=== PATIENT | female | born 1960 | race Caucasian/White ===

== ENCOUNTER → 2017-03-15 | Outpatient (CLI) | payer BC ==
--- NOTE | 2017-03-15 16:44 | MAM ---
EXAM DESCRIPTION: 3D Screening BILATERAL CLINICAL HISTORY: 56 yearsFemaleSCREENING. No complaints. Mother with breast cancer. Postmenopausal. No HRT. COMPARISON: Baseline study at this facility. No prior reports available. TECHNIQUE: Bilateral CC and MLO projection full-field images, 3-D tomosynthesis digital mammographic technique. Also bilateral synthesized CC/ MLO full-field images. CAD not utilized. FINDINGS: The breast parenchymal density pattern is: Scattered areas of fibroglandular density. No skin thickening or nipple retraction focal area of architectural distortion in the middle third of the left breast at the 300 clock position, approximately 9 cm from the nipple. Approximately 3 cm from the lateral skin surface. No associated with abnormal calcifications. Small focal mass density with partially circumscribed and partially ill-defined borders in the anterior to middle third of the right breast, upper outer quadrant, at the 930 clock position. Approximately 6.5 cm from the nipple. Not associated with calcifications. No focal asymmetry and no suspicious microcalcifications bilaterally. IMPRESSION: BI-RADS CATEGORY: 0 - INCOMPLETE- Need additional imaging evaluation. FOLLOW-UP: Recall for additional imaging: Targeted bilateral breast ultrasound in the regions of interest described in the findings. Digital 2-D orthogonal spot compression of the region of architectural distortion in the middle third of the left breast described in the findings. Written communication explaining the results and follow-up will be mailed to the patient and referring care provider. Electronically signed by: Gaurang Bustos MD 03/15/2017 4:43 PM CDT
== END | disposition home or self-care (01) ==
LOC: MAMMO 08:22
PROVIDERS: ATTEND Family Medicine
DX: Z12.31 Encounter for screening mammogram for malignant neoplasm of breast (principal)
CPT/HCPCS: 77063; G0202

== ENCOUNTER → 2017-04-26 | Outpatient (CLI) | payer BC | END | disposition home or self-care (01) | LOC: GMAM 16:42 | PROVIDERS: ATTEND Family Medicine | DX: R31.21 Asymptomatic microscopic hematuria (principal) ==

== ENCOUNTER → 2017-05-05 | Outpatient (CLI) | payer BC ==
--- NOTE | 2017-05-06 00:50 | CT ---
PROCEDURE: Abdoment/Pelvis w/o Contrast HISTORY: MICROSCOPIC HEMATURIA Indication: Same as above Comparison: None Technique: CT of the abdomen and pelvis was done without intravenous contrast. Images were obtained from the lung base to the level of the pubic symphysis in axial plane, followed by orthogonal sagittal and coronal reconstruction. Oral contrast was not given for the study. This exam was performed according to our departmental dose-optimization program, which includes automated exposure control, adjustment of the mA and/or KV according to the patient's size and/or use of iterative reconstruction technique. FINDINGS: Images through the lung bases do not show any focal infiltrates or pleural effusions. The liver, gallbladder, pancreas, spleen and the bilateral adrenal glands appear unremarkable, given the limitation of lack of intravenous contrast. The bilateral kidneys do not show any evidence of hydronephrosis or nephrolithiasis. The bilateral ureters and the bilateral periureteral soft tissues and fat planes are unremarkable. The urinary bladder is unremarkable, without any evidence of wall thickening, calculi or filling defects. The small bowel appears unremarkable, without any evidence of small bowel obstruction or bowel wall thickening. There is no CT evidence of acute appendicitis, pericecal inflammatory change or ileocecal mesenteric adenitis. The ileocecal junction appears unremarkable. There is no CT evidence of acute colonic diverticulitis or colitis or large bowel obstruction. There is large bowel diverticulosis There is no pathological lymphadenopathy in the retroperitoneum or in the pelvic region. There is no evidence of free fluid or free air in the abdomen or the pelvic region. There is no clinically significant abdominal aortic aneurysm. There is a tiny fat-containing periumbilical ventral hernia defect The visualized lumbar spine is unremarkable. The paravertebral soft tissues are unremarkable. The remainder of the pelvic structures are unremarkable. IMPRESSION: There is no CT evidence of urinary tract calculi or urinary tract obstruction. The urinary bladder is unremarkable Electronically signed by: Chente Woody MD 05/06/2017 12:49 AM CDT Workstation: [id number]
== END | disposition home or self-care (01) ==
LOC: CT 07:58
PROVIDERS: ATTEND Family Medicine
DX: R31.21 Asymptomatic microscopic hematuria (principal)

== ENCOUNTER → 2018-03-03 | Outpatient (CLI) | payer BC ==
--- NOTE | 2018-03-03 12:57 | US ---
EXAM DESCRIPTION: Liver CLINICAL HISTORY: 57 years Female, ABNORMAL LIVER ENZYMES COMPARISON: None. FINDINGS: Visualized portions of the pancreas are unremarkable. Liver appears hyperechoic consistent with diffuse hepatic steatosis. No focal liver mass or liver surface irregularity. Normal appearance of hepatic veins and inferior vena cava. Positive color flow in the portal vein. Gallbladder is visualized with no calcified stones in the lumen. In the right lobe of the liver a small irregular lucent lesion is seen which could be a cyst 1.2 cm. This can be followed. A repeat sonogram in 6-12 months is recommended. Common duct is normal in caliber 3.5 mm. No intrahepatic bile duct dilatation. Right kidney measures 10.2 cm in length which appears normal. IMPRESSION: Hyperechoic liver consistent with diffuse hepatic steatosis. Small cyst in the right lobe of the liver. Electronically signed by: Octavio Green MD 03/03/2018 12:56 PM CDT
== END ==
LOC: US 07:35
PROVIDERS: ATTEND Family Medicine
DX: R94.5 Abnormal results of liver function studies (principal); K76.0 Fatty (change of) liver, not elsewhere classified; K76.89 Other specified diseases of liver

== ENCOUNTER → 2018-05-11 | Outpatient (CLI) | payer BC ==
--- NOTE | 2018-05-12 15:51 | MAM ---
EXAM DESCRIPTION: 3D Screening BILATERAL : Digital Mammography. CLINICAL HISTORY: 57 years Female SCREENING . No complaints or personal history of breast cancer. Mother with breast cancer. Childbirth. Postmenopausal. No HRT. Left breast cyst aspiration.. Lifetime risk of developing breast cancer (Tyrer-Cuzick model)(%): 14.6. COMPARISON: Bilateral screening digital breast tomosynthesis 03/15/2017.. TECHNIQUE: Bilateral CC and MLO projection full-field images, digital tomosynthesis mammographic technique. Bilateral digital 2-D full-field MLO images. CAD not utilized. FINDINGS: The breast parenchymal density pattern is: Scattered areas of fibroglandular density. No skin thickening or nipple retraction. Left axillary lymph nodes. Again noted is architectural distortion in the upper outer quadrant of the middle third of the left breast, near the 3:00 position. There is suggestion of a small oval-shaped mass developing posterior and medial to the architectural distortion, since prior study. No associated calcifications.. No new focal, stellate mass or density, focal asymmetry , and no suspicious microcalcifications right breast. IMPRESSION: BI-RADS CATEGORY: 0 - INCOMPLETE- Need additional imaging evaluation. FOLLOW-UP: Recall for additional imaging: Targeted left breast ultrasound of the region of interest. Possible diagnostic digital left breast tomosynthesis to follow, depending on findings on the targeted left breast ultrasound examination.. Written communication concerning the IMPRESSION and Follow-up, will be mailed to the patient and referring health care provider. Electronically signed by: Gaurang Bustos MD 05/12/2018 3:50 PM CDT
== END ==
LOC: MAMMO 08:00
PROVIDERS: ATTEND Family Medicine
DX: Z12.31 Encounter for screening mammogram for malignant neoplasm of breast (principal)

== ENCOUNTER → 2018-05-18 | Outpatient (CLI) | payer BC ==
--- NOTE | 2018-05-18 11:45 | US ---
EXAM DESCRIPTION: Breast,Left: Ultrasound CLINICAL HISTORY: 57 yearsFemaleABNORMAL MAMMOGRAM COMPARISON: Digital screening tomosynthesis bilateral breast 05/11/2018. TECHNIQUE: Transcutaneous scanning of the lateral left breast utilizing hawthorne-scale and Doppler modes. Scanning performed by the printed circuit boards stripper etcher and Dr. Bustos. FINDINGS: Heterogeneous breast tissue with mixture of fibroglandular and fatty echotexture. Scanning 200-400 clock positions middle third. At the 3:00 position 7 cm from the nipple, is an ill-defined hypoechoic nodule measuring approximately 3.3 mm. Orientation is difficult to determine. Dense posterior shadowing. Minimal vascularity. Partial fatty echo a low anterior to the mass, with minimal echogenic radiating tissues. No definite calcifications. Based upon sonographic appearance in mammographic appearance, this could represent architectural distortion from prior procedure versus neoplasm or scar tissue. No distinct cyst. No parenchymal edema or large calcifications. Overlying skin was unremarkable. No abnormal vascularity surrounding the mass. IMPRESSION: BI-RADS CATEGORY 4: SUSPICIOUS. SUB-CATEGORY 4A - LOW SUSPICION FOR MALIGNANCY. Surgical consultation and tissue diagnosis should be considered. The FINDINGS and FOLLOW-UP plan were reviewed in person with the patient following the examination. Written communication explaining the IMPRESSION and FOLLOW-UP will be mailed to the patient and referring care provider. CRITICAL COMMUNICATION: The critical value was discussed directly by phone with Dr. Oriana Marmolejo at approximately 1130 hours, on May 18, 2018. Electronically signed by: Gaurang Bustos MD 05/18/2018 11:44 AM SAMPLER AND TEST PREPARER
== END ==
LOC: US 10:18
PROVIDERS: ATTEND Family Medicine
DX: R92.8 Other abnormal and inconclusive findings on diagnostic imaging of breast (principal)

== ENCOUNTER → 2018-05-25 | Outpatient (CLI) | payer BC ==
--- NOTE | 2018-05-25 13:11 | OP ---
DATE OF PROCEDURE: 05/25/18 PREOPERATIVE DIAGNOSIS: 1. Abnormal mammogram with a solid, shadowy mass at the 3 o'clock position. POSTOPERATIVE DIAGNOSIS: 1. Abnormal mammogram with a solid, shadowy mass at the 3 o'clock position. PROCEDURE: 1. Sonographically guided needle core biopsy, left breast mass. SURGEON: Santos Pierce MD. WORK STATION SUPPORT SPECIALIST: None. ANESTHESIA: Local infiltration of 1% lidocaine. INDICATION: The patient is a 57-year-old female who on routine mammography was found to have a lesion at the 3 o'clock position. It was shadowed and was solid. It was quite small. She was brought to the Ultrasound Suite today for sonographically guided biopsy after the risks, benefits and alternatives to this biopsy were discussed and accepted. FINDINGS: Multiple good cores were taken. It was noted that the biopsy needle tended to bounce off the lesion. PROCEDURE: After the patient was placed in the supine position with her left shoulder elevated, the left breast was inspected with the ultrasound device. When the lesion was identified, the breast lateral to the ultrasound probe was prepped with Betadine and draped. Local infiltration of anesthesia was obtained with 1% lidocaine, both in the skin and the tract between the skin and the lesion. A stab wound was then made with a 15 blade and multiple passes were made with the biopsy device. Several cores were obtained and sent for pathological evaluation . Hemostasis was obtained with pressure and a single simple 4-0 Nylon suture. Sterile pressure dressing was applied. The patient was then discharged home in good condition. Estimated blood loss was less than [id number] [facility]
--- NOTE | 2018-05-26 09:34 | US ---
EXAM DESCRIPTION: Biopsy/Needle Guidance: Ultrasound. CLINICAL HISTORY: 57 years Female ABN MAMMO COMPARISON: Diagnostic ultrasound of the left breast on 05/18/2018. TECHNIQUE: The procedure was performed by Dr. Pierce. Repeat ultrasound localized left breast mass/nodule at the 3:00 position of the left breast 7 cm from the nipple.. Sterile preparation. Sterile ultrasound guidance during needle passes. FINDINGS: Images before the procedure again show small nodule with questionable orientation and posterior shadowing. Follow-up images demonstrate multiple needle passes in the vicinity of the mass. IMPRESSION: Successful, ultrasound-guided needle core biopsy of left breast mass. Adequate core samples were obtained. Pathology examination at remote facility, results pending. Electronically signed by: Gaurang Bustos MD 05/26/2018 9:32 AM ACID OPERATOR
== END ==
LOC: US 11:49
PROVIDERS: ATTEND Surgery
DX: R92.8 Other abnormal and inconclusive findings on diagnostic imaging of breast (principal)

== ENCOUNTER → 2018-05-31 | Outpatient (CLI) | payer BC ==
--- NOTE | 2018-05-31 14:34 | NM ---
EXAM DESCRIPTION: Bone Scan, Whole Body CLINICAL HISTORY: C50.812 left breast cancer COMPARISON: CT abdomen and pelvis dated May 05, 2017. TECHNIQUE: Following intravenous administration of 26.4 mCi technetium 99m MDP, whole body scintigraphic imaging was performed in the anterior and posterior projections. FINDINGS: Skull: Unremarkable. Spine: No osteoblastic metastatic lesions. Thorax: Symmetric homogeneous physiologic radiotracer uptake noted of the bilateral ribs and sternum. No osteoblastic metastatic lesions. Abdomen and pelvis: Urinary activity noted within the bilateral kidneys and urinary bladder.Mild urine contaminated noted within the female genitalia region. No pathologic focus of abnormal increased uptake demonstrated of the osseous pelvis. Extremities: Mild degenerative uptake within the bilateral shoulders and knee joints. IMPRESSION: No scintigraphic evidence for osteoblastic metastatic disease. Electronically signed by: Sandip Delgado MD 05/31/2018 2:32 PM TEAR DOWN MAN
--- NOTE | 2018-06-04 16:16 | RAD ---
EXAM DESCRIPTION: Chest,2 Views: CR/ CLINICAL HISTORY: C50.812. Left Breast cancer. COMPARISON: None. TECHNIQUE: Two views. FINDINGS: Lungs: Clear of infiltrate. Pleural spaces: No effusion or pneumothorax bilaterally. Heart: Normal size. Pulmonary Vascularity: Not increased. Mediastinum: Not widened. Aorta: Minimal atherosclerotic changes. Bony Thorax/Spine: No acute bony thoracic abnormalities. Endplate spurs and disc space narrowing. IMPRESSION: No radiographic evidence of acute cardiopulmonary disease. Electronically signed by: Gaurang Bustos MD 06/04/2018 4:15 PM PHARMACY TECHNICIAN ASSISTANT
== END ==
LOC: NM 09:54
PROVIDERS: ATTEND Surgery
DX: C50.812 Malignant neoplasm of overlapping sites of left female breast (principal)

== ENCOUNTER → 2019-10-30 | Outpatient (CLI) | payer BC ==
--- NOTE | 2019-10-31 10:00 | US ---
EXAM DESCRIPTION: 3D Diagnostic, Bilateral (accession [id number]), Breast,Bilateral (accession [id number]): Ultrasound CLINICAL HISTORY: 59 yearsFemaleMALIGNANT NEOPLASM OF CENTRAL PORTION OF LEFT FEMALE BREAST . Personal history of left breast cancer with lumpectomy and radiation and chemotherapy. Mother with breast cancer. Menarche age 10. Childbirth age 17. Menopause age 50. No HRT. Bilateral breast reduction post lumpectomy. Lifetime risk of developing breast cancer (Tyrer-Cuzick model)(%): Not calculated due to personal history of breast cancer. COMPARISON: Bilateral screening digital breast tomosynthesis May 2018. Left Breast ultrasound and right breast ultrasound-guided biopsy May 2018. Digital follow-up mammogram at other facility in May 2019, not yet available for comparison. TECHNIQUE: Bilateral LM, CC, and MLO projection full-field images, digital tomosynthesis technique. Bilateral 2-D digital full-field images: LM, CC, and MLO projections. CAD available for 2-D images.. Transcutaneous scanning of the bilateral breasts utilizing hawthorne-scale and Doppler modes. Scanning performed by the janitorial maintenance worker ; observation by Dr. Bustos. FINDINGS: The breast parenchymal density pattern is: Scattered areas of fibroglandular density. No skin thickening or nipple retraction bilateral architectural distortion secondary to breast reduction procedure. Bilateral breasts volume decreased consistent with procedure. Skin marker over lumpectomy site anterior left breast. Skin mole marker inferior right breast. Right axillary lymph node. Solitary microcalcifications bilaterally. Focal asymmetry similar to fat necrosis associated with the left breast skin marker. Faint curvilinear calcifications. New mass density posterior right axilla upper outer quadrant, circumscribed margins with tissue extension. Ultrasound: Scanning region of interest upper outer quadrant posterior right breast. Well-defined anechoic fluid collection with thin frausto, wider than tall orientation and posterior acoustic enhancement. Nonvascular. Greatest dimension 2.9 cm. 1.7 x 0.5 cm radial axis. No dominant solid mass or large calcifications. Surrounding tissue is mostly fatty replaced. Scanning region of interest around the skin marker anterior left breast. Irregular low-density with posterior acoustic shadowing. Dimensions approximately 1.7 x 1.0 cm. Nonvascular. This may be due to calcification. Echogenic components could represent fat. Surrounding tissue is mostly fatty replaced. IMPRESSION: BI-RADS CATEGORY: 0 - INCOMPLETE- Need prior mammograms for comparison. FOLLOW-UP: Comparison with prior examination(s) when available. Written communication explaining the results and follow-up will be mailed to the patient and referring care provider. The FINDINGS and the FOLLOW-UP plan (to obtain prior digital mammography study last year) were reviewed in person with the patient after the examination. Electronically signed by: Gaurang Bustos MD 10/31/2019 9:59 AM CDT
== END ==
LOC: MAMMO 08:52
PROVIDERS: ATTEND Nurse Practitioner Family
DX: C50.112 Malignant neoplasm of central portion of left female breast (principal)
CPT/HCPCS: 76641; 77066; G0279

== ENCOUNTER → 2020-04-16 | Outpatient (CLI) | payer BC ==
--- NOTE | 2020-04-17 16:26 | MAM ---
EXAM DESCRIPTION: 3D Diagnostic, Right (accession [id number]), Breast,Right (accession [id number]): Ultrasound CLINICAL HISTORY: 59 yearsFemaleABNORMAL MAMMO . Six-month follow-up Left breast cancer 2011 with lumpectomy and treatment. Bilateral breast reduction. Probable scar upper outer quadrant posterior right breast. No tenderness or pain at this site. Mother with breast cancer age 61. Lifetime risk of developing breast cancer (Tyrer-Cuzick model)(%): Not calculated due to personal history of breast cancer. COMPARISON: Diagnostic bilateral breast ultrasound October 2019. TECHNIQUE: Right breast LM, CC, and MLO projection full-field images, digital tomosynthesis technique. Right breast 2-D digital full-field images: LM, CC, and MLO projections. CAD available for 2-D images.. Transcutaneous scanning of the right breast utilizing hawthorne-scale and Doppler modes. Scanning performed by the clean out driller helper ; observation by Dr. Bustos. FINDINGS: The breast parenchymal density pattern is: Scattered areas of fibroglandular density No skin thickening or nipple retraction architectural distortion and small mass density again noted in the upper outer quadrant of the posterior third of the right breast but not associated with abnormal calcifications or skin changes according to the technologist. No new focal, stellate mass or density, focal asymmetry , and no suspicious microcalcifications right breast. Ultrasound: Scanning region of interest 6 cm from the nipple at 10:00. Mostly fatty echotexture with minimal fibroglandular elements. Small well-defined slitlike collection of fluid is again seen with no vascularity. No dominant solid mass. No large calcifications or distinct cyst. No overlying skin changes. Most likely resolving scar tissue. IMPRESSION: Benign exam. BIRAD CATEGORY: 2 BENIGN FINDINGS. RECOMMENDATIONS: FOLLOW UP: Routine digital bilateral mammographic screening, one year interval from October 2019. Written communication explaining the IMPRESSION and follow-up, will be mailed to the patient and referring health care provider. The FINDINGS and the FOLLOW-UP plan were reviewed in person with the patient after the examination. According to the [employer], yearly mammograms are recommended starting at age 40 and continuing as long as a woman is in good health. Any breast change noted on a breast self-exam should be reported promptly to the patient's healthcare provider. Breast MRI is recommended for women with an approximately 20-25% or greater lifetime risk of breast cancer, including women with a strong family history of breast or ovarian cancer and women who have been treated for Hodgkin's disease. A negative mammographic report should not delay tissue diagnosis in patients with significant clinical history or physical findings. Extremely dense breast tissue limits the sensitivity of digital mammography. Electronically signed by: Gaurang Bustos MD 04/17/2020 4:24 PM CDT
== END ==
LOC: MAMMO 08:56
PROVIDERS: ATTEND Nurse Practitioner Family
DX: C50.112 Malignant neoplasm of central portion of left female breast (principal)
CPT/HCPCS: 76641; 77065; G0279